=== PATIENT | female | born 1985 | race Caucasian/White ===

== ENCOUNTER → 2020-12-10 | Day surgery (SDC) | payer OTHER ==
[~2020-12-10] MED LIST: VENTOLIN HFA IN18 GM INH; VITAMIN D310 MC4 PO
[2020-12-10 09:49] LABS: HCT 38.9 % (37.0-47.0); MCH 29.3 pg (25.0-31.0); MCHC 33.4 g/dL (32.0-36.0); MCV 87.6 fL (78.0-100.0); MPV 10.2 fL (6.0-9.5); RBC 4.44 M/uL (4.20-5.40); RDW 11.9 % (11.5-14.0); WBC 5.1 K/uL (4.0-10.5)
== END | disposition home or self-care (01) ==
LOC: FAS 08:37
PROVIDERS: Obstetrics & Gynecology
DX: O02.1 Missed abortion (principal); Z91.040 Latex allergy status; Z80.41 Family history of malignant neoplasm of ovary
CPT/HCPCS: 36415; 86850; 86900; 86901; 93005; J1885; J2250; J2405; J2704; J3010; J7050; J7120